=== PATIENT | male | born 1965 | race African-American/Black ===

== ENCOUNTER 2017-11-11 05:39 | Day surgery (SDC) | payer OTHER ==
[~2017-11-11] VITALS: Ht 188 cm; Wt 113.4 kg
--- NOTE | ~2017-11-11 | OP ---
PATIENT NAME: ADRIANE CALLAWAY MEDICAL RECORD: [id number] :61 LOCATION:D.OPS ADMISSION DATE: SURGEON: FLOYD MIX MD DATE OF OPERATION: 11/11/2017 PREOPERATIVE DIAGNOSIS: History of right-sided colon polyp, large. POSTOPERATIVE DIAGNOSIS: History of right-sided colon polyp, large with a total of 3 semi-pedunculated polyps. PROCEDURES: 1. Total colonoscopy to cecum. 2. Hot biopsy forceps polypectomies times 3. SURGEON: Floyd Mix MD MANAGER CLINICAL PHARMACY: None. BLOOD LOSS: Minimal. ANESTHESIA: General. COMPLICATIONS: None. This procedure was performed in the operating room because I felt that I was going to need to use the argon plasma email marketing intern. As it turned out, the prior polyp ablation made it such that the argon plasma email marketing intern was not necessary and in fact the polyps were all removed utilizing the hot biopsy forceps polypectomy technique. OPERATIVE COURSE: The patient was conveyed to operating room electively on 11/11/2017. General anesthesia was induced by the anesthesia staff. The patient was placed in the Fine position. A digital rectal examination was performed. A colonoscope was inserted through the anus. It was easily advanced to the cecum. Upon withdrawal, I irrigated and aspirated extensively. A combination of direct imaging as well as narrow band imaging were utilized. The prep was adequate. I dragged the folds. The pullback was greater than an 18-minute pullback. Three polyps were noted and these were removed utilizing the hot biopsy forceps polypectomy technique. They were removed in their entireties. They ranged from 8 mm in size to 1.2 cm in size. I withdrew into the rectum. A retroflexed view was obtained in the rectum. I then directed unretroflexed the scope and removed it under direct vision. I am going to recommend that the patient's next surveillance colonoscopy take place in 1 year and this can be done out at the [facility] facility. TRANSINT:[id number] Voice Confirmation ID: [id number] DOCUMENT ID: [id number] CC: Dr. Hardin, fax number not found Dorcas Colmenares, fax number not found OPERATIVE REPORT [id number] ADRIANE CALLAWAY ROBERT MD at 1151 CC: [id number] DICTATION DATE: 11/11/17 0949 FINANCIAL SERVICE PROFESSIONAL: 11/11/17 1429 [facility] [place] 11/11/17 [facility] [address] [place] [address]
[2017-11-11] MEDS ORDERED: NORVASC10 MG PO (06:35)
[2017-11-11] MEDS ORDERED: BAYER CHEWABLE81 MG PO (06:36)
[2017-11-11] MEDS ORDERED: CHLORTHALIDONE25 MG PO (06:37)
[2017-11-11] MEDS ORDERED: BENTYL10 MG PO (06:40)
[2017-11-11] MEDS ORDERED: CYMBALTA30 MG PO (06:41)
[2017-11-11] MEDS ORDERED: NEURONTIN800 MG PO (06:42)
[2017-11-11] MEDS ORDERED: HUMULIN 70100 UNIT/1 SC ×2 (06:44→06:45)
[2017-11-11] MEDS ORDERED: ZESTRIL40 MG PO (06:46)
[2017-11-11] MEDS ORDERED: ISOSORBIDE MONO30 M1 PO (06:46)
[2017-11-11] MEDS ORDERED: GLUCOPHAGE1000 MG PO (06:47)
[2017-11-11] MEDS ORDERED: QVAR8.7 G1 INH (06:49)
[2017-11-11] MEDS ORDERED: SENOKOT-S TABLE1 TAB PO (06:49)
[2017-11-11 06:59] VITALS: BP 106/73; Ht 188 cm; Wt 113.4 kg
[2017-11-11 07:03] LABS: HEMATOCRIT 39.7 % (42.0-54.0); HEMOGLOBIN 13.3 g/dL (13.5-17.5); MCH 27.1 pg (26.0-34.0); MCHC 33.5 g/dL (31.0-37.0); MCV 80.9 fL (80.0-100.0); MEAN PLATELET VOLUME 9.8 fL (7.4-10.4); RBC 4.91 10x6/uL (4.20-6.10); RDW 14.1 % (11.5-14.5); WBC 5.8 10x3/uL (4.8-10.8)
[2017-11-11 07:14] LABS: ANION GAP 11.7 mmol/L (8-16); CALCIUM 8.6 mg/dL (8.5-10.1); CREATININE - SERUM 1.1 mg/dL (0.6-1.3); POTASSIUM - SERUM 3.7 mmol/L (3.5-5.1)
== END 2017-11-11 11:30 | disposition home or self-care (01) ==
LOC: D.OPS 05:39 → D.SDCHOLD 05:45 → D.OPS 08:00
PROVIDERS: Anesthesiology
DX: K63.5 Polyp of colon (principal); J45.909 Unspecified asthma, uncomplicated; I10 Essential (primary) hypertension; E11.9 Type 2 diabetes mellitus without complications; K21.9 Gastro-esophageal reflux disease without esophagitis; G47.30 Sleep apnea, unspecified; Z01.812 Encounter for preprocedural laboratory examination